=== PATIENT | female | born 1930 | race Caucasian/White ===

== ENCOUNTER 2016-05-03 03:14 | Inpatient (IN) | payer OTHER, MEDICARE ==
[~2016-05-03] VITALS: Ht 152.4 cm; Wt 62.6 kg
[~2016-05-03 03:14] MED LIST: ATORVASTATIN CA10 M1 PO; COLACE100 M1 PO; FER-IN-SOL15 MG/1 ML PO; LEVOTHYROXINE88 MCG PO; LISINOPRIL5 M1 PO; METRONIDAZOLE70 GM EXT
--- NOTE | 2016-05-03 12:31 | Operative Report ---
Operative/Inv Procedure Report Surgery Date: 05/03/16 Name of Procedure: Right total knee arthroplasty Pre-Operative Diagnosis: Primary right knee osteoarthritis Post-Operative Diagnosis: Same Estimated Blood Loss: scant Surgeon/Manager Of Drilling: LILI SANDOVAL,Jean-Claude CROWE Anesthesia: block Implants: [place] triathlon total knee arthroplasty system--size 3 cruciate retaining femur, size 3 tibia, 9 mm cruciate retaining polyethylene, 29 patella Drains: None Specimens: Femoral, tibial, patellar bone Microbiology: Urine Tourniquet: 52 minutes Complications: None Condition: Stable Operative Indication: Patient is an 85-year-old woman with a long history of gradually worsening right knee symptoms. She has been diagnosed with osteoarthritis. At one point since her x-rays were not as impressive, patient did have MRI evaluation which revealed more severe degenerative changes in tricompartmental distribution. Severe changes of articular cartilage loss on the lateral compartment, moderate changes in medial compartment and patellofemoral compartment.Patient was treated with medications activity modification and injections. Unfortunately she had persistent and ongoing symptoms including mechanical symptoms and worsening pain that interfere with normal activities of daily living. She wished to proceed with total knee arthroplasty after risks benefits and expectations were discussed which included but were not limited to persistent knee pain, need for subsequent surgery, infection, DVT, anesthesia risks, injury to blood vessel or nerve. Operative/Procedure Note Note: Patient was brought to the operating room and transferred to the operating table. Once under appropriate anesthesia the right lower extremity was prepped and draped in standard fashion. Preoperative IV antibiotics were given prophylactically. The right lower extremity was elevated exsanguinated and tourniquet was inflated to 300 mm of pressure. Standard anterior incision was made for anticipated medial parapatellar approach to the knee. Incision was taken down sharply to the underlying retinaculum. A medial retinacular approach with minimal extension into the quadriceps tendon was used to enter the knee. There were diffuse degenerative changes of both medial lateral compartments. Degenerative osteophytes were excised. Remnants of the medial lateral meniscal tissues were excised. ACL was excised. Knee was flexed and the drill was used to enter the intramedullary canal the distal femur for the intramedullary guide. The settings were 5 valgus and 10 mm in thickness. The cut was made while protecting the soft tissues. The femur was incised was size 3. The size 3 cutting jig was used to finish the preparation of the femur. I then used the external tibial alignment guide to determine the tibial cut. The cutting guide was pinned in position for a neutral cut from medial to lateral and reproducing patient's posterior slow-paced on preoperative templating and intraoperative findings. The cut was made while protecting the medial lateral and posterior structures. The PCL was recessed. Remnants of the posterior horns of the medial lateral meniscal tissues were excised. The tibia was then sized to a size 3. A trial reduction with a size 3 tibia size 3 to femur and a 9 mm insert was used the knee was taken out to full extension there was no evidence of instability. Extension mid flexion and full flexion to gravity. I then prepared the patella. Patella was measured, appropriate thickness was removed and restored with a 29 mm 3 lug hole patella. The 3 lug holes were drilled in standard fashion as lateral as possible. The knee was taken through range of motion. Slight tendency for the patella to sublux and therefore a lateral release was performed and extra articular fashion. I was satisfied with the patellofemoral articulation and tracking after this was completed. All components were then removed and final preparation of the tibia was completed with the tibial punch at the appropriate rotation which was marked during my trialing. 2 lug holes were drilled in the femur. Copious irrigation of the knee followed as the cement was being mixed on the back table. Once the cement was ready was applied to the dry clean bony surfaces of the tibia. The size 3 tibial component was impacted in place with the rotation that was previously determined. Excess cement was removed with curettes. Cement was applied to the dry clean bony surfaces of distal femur and the size 3 femur was impacted in place and excess cement was removed with curettes. The knee was taken out into full extension with a 9 mm polyethylene component to pressurize the interfaces. Cement was applied to the dry clean bony surfaces of the patella. The size 29 patella was impacted in place and excess cement was removed with a knife. While the cement was hardening I did appear articular pericapsular injection of ropivacaine with epinephrine and Toradol for postoperative pain and inflammation management. Once cement was hardening took the knee through range of motion. Small pieces of excess cement were removed with osteotome. I was satisfied with the stability with a 9 mm insert. I removed the trial polyethylene. Copious irrigation the tibial tray followed. I made sure there was no remnants of bone, cement or soft tissue within the tibial tray and then I impacted the definitive size 9 mm cruciate retaining polyethylene in place. The locking mechanism was confirmed. The knee was taken through range of motion. Full extension. No evidence of instability in full extension mid flexion and she had full flexion to gravity with excellent tracking of the patellofemoral articulation. Copious irrigation followed and followed every level of closure. The tourniquet was deflated at 52 minutes. Hemostasis was obtained. There was no need for a drain. I then closed the retinacular incision with interrupted #1 Vicryl sutures followed by the quadricep extension. Subcutaneous tissues closed with 2 -0 Vicryl in 2 layers. Skin was closed with a running 3-0 Vicryl suture with the knee in flexion. Appropriate dressings were applied and patient was awakened and taken the recovery room in good condition. No intraoperative complications. Blood loss was minimal due to the tourniquet. Discharge Disposition: PACU
--- NOTE | 2016-05-03 14:36 | PN- Orthopedic ---
Subjective Subjective: Post op check Complaining of surgical pain - has had an On Q placed but it doesn't seem to be working No nausea, tolerating liquids Objective Vital Signs and I&Os VSS, afebrile good urine output in [place] Physical Exam: General: alert and oriented times three Chest: clear anteriorly bilaterally, RRR Abd: soft, good bs Ext: warm, no edema, positive sensate, no calf tenderness, good strength RLE Wound: dressed, dry, ice pack in place On Q in place Assessment/Plan Assessment/Plan 85 yo female s/p R TKR pain management coumadin for dvt ppx - 5mg ordered PT - wbat fu labs in am anesthesia coming to evaluate On Q - of not working will dc and adjust meds accordingly Core Measures/Miscellaneous [place] Catheter Date In: 05/03/16 Still Needed? Yes (24 hrs post op) Venous Thromboembolism VTE Risk Factors: Age > 40, Surgery VTE Contraindications: No Contraindications VTE Prophylaxis Ordered Inpt: Mech & Pharm VTE Diagnosis: No Beta Vivienne Is Beta Vivienne a Home Med? No Antibiotics Is Patient on Antibiotics? Yes If Yes: prophylaxis (24 hrs post op)
[2016-05-03 17:04] VITALS: BP 124/80
[2016-05-03 19:42] VITALS: BP 150/70
[2016-05-03 21:00] VITALS: BP 140/68
[2016-05-03 23:03] VITALS: BP 120/70
[2016-05-04 07:28] VITALS: BP 118/10
--- NOTE | 2016-05-04 07:43 | PN- Orthopedic ---
See Addendum Subjective Subjective: NAEO. Patient without new c/o. She had some bleeding from On-Q pump site yesterday evening which has since stopped. Pain controlled at this time. She had some n/v last night but has tolerated milk this morning. Has not been OOB with PT. Voiding. Denies CP/SOB. Objective Vital Signs and I&Os Vital Signs Date Time Temp Pulse Resp B/P Pulse O2 O2 Flow FiO2 Ox Delivery Rate 05/04 0728 98.0 71 20 118/10 95 Room Air 05/03 2303 98.0 72 20 120/70 94 Room Air 05/03 2219 70 142/68 05/03 2100 98.0 70 18 140/68 94 Room Air 05/03 1942 97.6 70 20 150/70 95 Room Air 05/03 1704 98.0 66 18 124/80 94 Room Air Intake & Output 05/04 0800 05/04 0000 05/03 1600 05/03 0800 05/03 0000 05/02 1600 Intake Total 960 1050 Output Total 450 675 Balance 510 375 Intake, IV 600 450 Intake, Oral 360 600 Number Bowel Movements Output, Emesis Output, Urine 450 675 Patient 138 lb Weight Physical Exam: General: NAD, comfortable, A&Ox3 Chest: CTAB. RRR. Abdomen: soft, nontender, nondistended. Ext: Right knee dressing c/d/i. RLE compartments soft. No calve swelling/TTP, neurovascularly intact bilateral lower extremities. Current Medications: Current Medications Sig/Delicia Start time Last Medication Dose Route Stop Time Status Admin Al Hydroxide/Mg 30 ML Q6P PRN 05/03 1645 AC Hydroxide PO Atorvastatin Calcium 10 MG 1700 05/03 1730 AC 05/03 PO 2055 Dextrose/Lactated 1,000 ML Q13H 05/03 1645 AC 05/03 Ringer's IV 1733 Docusate Sodium 100 MG DAILY 05/04 1000 AC PO Fentanyl Citrate 100 MCG .STK-MED ONE 05/03 0942 DC IM 05/03 0943 Hydromorphone HCl 2 MG .STK-MED ONE 05/03 1245 DC IM 05/03 1246 Levothyroxine Sodium 0.088 MG DAILY AC 05/04 0700 AC 05/04 PO 0554 Lisinopril 5 MG 2200 05/03 2200 AC 05/03 PO 2219 Midazolam HCl 2 MG .STK-MED ONE 05/03 0942 DC IM 05/03 0943 Morphine Sulfate 2 MG Q3P PRN 05/03 1645 AC 05/04 IV 0609 Morphine Sulfate 4 MG Q3P PRN 05/03 1645 AC 05/03 IV 2055 Ondansetron HCl 4 MG Q6P PRN 05/03 1645 AC 05/03 IV 1727 Oxycodone/ 1 TAB Q4P PRN 05/03 1645 AC Acetaminophen PO Oxycodone/ 2 TAB Q4P PRN 05/03 1645 AC Acetaminophen PO Polyethylene Glycol 17 GM DAILY NEEDED PRN 05/03 1645 AC PO Ropivacaine 500 ML ONCE ONE 05/03 1245 AC ON-Q Ball 1 BAG INJ 05/05 1444 Tranexamic Acid 2,000 MG .STK-MED ONE 05/03 0943 DC IV 05/03 0944 Vancomycin HCl 1,000 MG ONCE ONE 05/03 2200 DC 05/03 Dextrose/Water 250 ML IV 05/03 2259 2309 Vancomycin HCl 1,000 MG ONCE 05/03 0000 DC Dextrose/Water 250 ML IV 05/03 2359 Warfarin Sodium 5 MG COUMADIN 1700 ONE 05/03 1700 DC 05/03 PO 05/03 1701 2055 Assessment/Plan Assessment/Plan 85yo F POD#1 s/p R TKA. AVSS, progressing as expected. - Pain control - Bowel regimen - PRN antiemetics - OOB and ambulate with PT - f/u a.m. labs - dose coumadin for INR 2-3 - continue On-Q pump - I/O's - DC IVF - abx complete - will d/w attending Core Measures/Miscellaneous [place] Catheter Date In: 05/03/16 Venous Thromboembolism VTE Risk Factors: Age > 40, Surgery VTE Contraindications: No Contraindications VTE Prophylaxis Ordered Inpt: Mech & Pharm VTE Diagnosis: No Beta Vivienne Is Beta Vivienne a Home Med? No Antibiotics Is Patient on Antibiotics? No
[2016-05-04 08:45] LABS: ABSOLUTE BASOPHIL COUNT 0 /CUMM (0.0-0.2); ABSOLUTE EOSINOPHIL COUNT 0 /CUMM (0.0-0.7); ABSOLUTE GRANULOCYTE CT 10.3 /CUMM (1.4-6.5); ABSOLUTE LYMPH COUNT 0.7 /CUMM (1.2-3.4); ABSOLUTE MONOCYTE COUNT 0.8 /CUMM (0.10-0.60); BASOPHIL % 0 % (0.0-2.0); EOSINOPHIL % 0.2 % (0-5); HEMATOCRIT 33.9 % (37-47); MEAN CORPUSCULAR HGB 34.5 PG (27.0-31.0); MEAN CORPUSCULAR HGB CONC 34.3 G/DL (33.0-37.0); MEAN CORPUSCULAR VOLUME 100.5 FL (81.0-99.0); MEAN PLATELET VOLUME 8.8 FL (7.4-10.4); PLATELET COUNT 172 /CUMM (130-400); RBC DISTRIBUTION WIDTH 12.4 % (11.5-14.5); RED BLOOD CELL CT 3.37 /CUMM (4.20-5.40); WHITE BLOOD CELL COUNT 11.8 /CUMM (4.8-10.8)
[2016-05-04 08:55] LABS: PT 11.9 SEC (9.4-12.5)
--- NOTE | 2016-05-04 09:11 | Patient Discharge Instructions ---
Discharge Instructions General Discharge Information You were seen/treated for: Right knee primary OA/DJD You had these procedures: 05/03/16 Right total knee arthroplasty Watch for these problems: Redness, swelling, fever, signs of infection. Uncontrolled pain, Excessive bleeding. Decreased range of motion or unable to bear weight. Chest pain, shortness of breath. Call Surgeon to remove: Stitches Do not soak the wound: Yes No bath, but you may shower: Yes Other wound care: Daily dressing changes Diet Continue normal diet: Yes Activity Activity Self Limited: Yes Activity Limited to: Weight bear as tolerated Additional ACTIVITY Info: Daily physical therapy Acute Coronary Syndrome Inclusion Criteria At DC or during hospital stay patient has or had the following: ACS DIAGNOSIS No Discharge Core Measures Meds if any: Prescribed or Continued at Discharge Meds if any: NOT Prescribed or Continued at Discharge Congestive Heart Failure Inclusion Criteria At DC or during hospital stay patient has or had the following: CHF DIAGNOSIS No Discharge Core Measures Meds if any: Prescribed or Continued at Discharge Meds if any: NOT Prescribed or Continued at Discharge Cerebrovascular accident Inclusion Criteria At DC or during hospital stay patient has or had the following: CVA/TIA Diagnosis No Discharge Core Measures Meds if any: Prescribed or Continued at Discharge Meds if any: NOT Prescribed or Continued at Discharge Venous thromboembolism Inclusion Criteria VTE Diagnosis No VTE Type NONE VTE Confirmed by (Test) NONE Discharge Core Measures - Per Current guidelines, there needs to be overlap - treatment for the first 5 days of Warfarin therapy. - If discharged on Warfarin prior to 5 days of - overlap therapy, the patient will need to be - assessed for post discharge needs including - *Post discharge parental anticoagulation - *Warfarin and/or parental anticoagulation education - *Follow up date to check INR post discharge At least 5 days overlap therapy as Inpatient No Meds if any: Prescribed or Continued at Discharge Note: Overlap Therapy is Warfarin and Anticoagulant Meds if any: NOT Prescribed or Continued at Discharge
[2016-05-04] MEDS ORDERED: COLACE100 M1 PO (09:13)
[2016-05-04] MEDS ORDERED: COUMADIN5 M2 PO (09:13)
[2016-05-04] MEDS ORDERED: PERCOCET 5-3251 EACH PO (09:13)
--- NOTE | 2016-05-04 09:18 | Discharge Summary ---
Visit Information Visit Dates Admission Date: 05/03/16 Discharge Date: 05/06/2016 Hospital Course Course Attending Physician: AMRITA PEARSON MD Primary Care Physician: Bret HALE MD Hospital Course: Patient admitted to floor following procedure below. Patient ambulated with PT upon arrival to the floor. Patient continued to progress well. Upon discharge patient is afebrile, tolerating diet, pain controlled, ambulating well with rolling walker and PT. Complications: None Allergies: Coded Allergies: Penicillins (Severe, SWELLING 04/22/16) Significant Procedures: 05/03/16 right total knee arthroplasty Disposition Summary Disposition Principal Diagnosis: Right knee primary OA/DJD Additional Diagnosis: None Discharge Disposition: SNF Discharge Instructions General Discharge Information Code Status: Full Code Patient's Diet: Resume normal diet Patient's Activity: Weightbearing as tolerated Daily physical therapy Follow-Up Instructions/Appts: Call office to schedule/confirm appointment Medications at Discharge Discharge Medications: Continue taking these medications: Ferrous Sulfate (Jean-in-Lauren) 15 MG IRON (75 MG)/ML DROPS 1 Tablet ORAL DAILY Comments: Last Taken:NOT TAKE IN HOSPITAL Time: Docusate Sodium (Colace) 100 MG CAPSULE 1 Tablet ORAL DAILY Comments: Last Taken:05/06/16 Time:1050 Levothyroxine Sodium (Levothyroxine Sodium) 88 MCG TABLET 1 Tablet ORAL DAILY Comments: Last Taken:05/06/16 Time:0610 Lisinopril (Lisinopril) 5 MG TABLET 1 Tablet ORAL NIGHTLY Comments: Last Taken:05/05/16 Time:2142 Atorvastatin Calcium (Atorvastatin Calcium) 10 MG TABLET 1 Tablet ORAL NIGHTLY Comments: Last Taken:05/05/16 Time:1612 Metronidazole (Metronidazole) 0.75 % GEL.W.APPL 1 ON SKIN DAILY Comments: Last Taken:NOT TAKEN IN HOSPITAL Time: Start taking the following new medications: Warfarin Sodium (Coumadin) 5 MG TABLET 1 Tablet ORAL DAILY Qty = 14 No Refills Instructions: DOSE FOR INR 2-3 Comments: Last Taken:05/05/16 Time:1612 Docusate Sodium (Colace) 100 MG CAPSULE 1 Capsule ORAL TWICE DAILY as needed for CONSTIPATION Qty = 30 Refills = 1 Comments: Last Taken:05/06/16 Time:1050 Tramadol HCl (Ultram) 50 MG TABLET 1 Tablet ORAL EVERY SIX HOURS NEEDED as needed for PAIN Qty = 30 No Refills Comments: Last Taken:05/06/16 Time:0350 Copies To: Bret HALE MD
[2016-05-04 09:26] LABS: GRANULOCYTE % 87.4 % (42.2-75.2)
[2016-05-04 09:36] VITALS: BP 122/80
[2016-05-04 13:59] VITALS: BP 120/60
[2016-05-04 22:38] VITALS: BP 114/50
[2016-05-05 06:30] VITALS: BP 148/70
[2016-05-05 08:01] LABS: ABSOLUTE BASOPHIL COUNT 0 /CUMM (0.0-0.2); ABSOLUTE EOSINOPHIL COUNT 0.1 /CUMM (0.0-0.7); ABSOLUTE GRANULOCYTE CT 6.9 /CUMM (1.4-6.5); ABSOLUTE LYMPH COUNT 0.9 /CUMM (1.2-3.4); ABSOLUTE MONOCYTE COUNT 0.8 /CUMM (0.10-0.60); BASOPHIL % 0.3 % (0.0-2.0); EOSINOPHIL % 1.5 % (0-5); HEMATOCRIT 34.1 % (37-47); MEAN CORPUSCULAR HGB 34.8 PG (27.0-31.0); MEAN CORPUSCULAR HGB CONC 34.5 G/DL (33.0-37.0); MEAN CORPUSCULAR VOLUME 100.9 FL (81.0-99.0); MEAN PLATELET VOLUME 8.9 FL (7.4-10.4); PLATELET COUNT 162 /CUMM (130-400); RBC DISTRIBUTION WIDTH 12.6 % (11.5-14.5); RED BLOOD CELL CT 3.38 /CUMM (4.20-5.40); WHITE BLOOD CELL COUNT 8.8 /CUMM (4.8-10.8)
--- NOTE | 2016-05-05 08:06 | PN- Orthopedic ---
See Addendum Subjective Subjective: Patient reported no acute overnight events, but states that her pain is increasing this a.m. She mentioned that she was concerned she was taking pain medication that may be too strong for her, so she had requested Vicodin yesterday. She now states that she feels the Vicodin might not be effective enough and is interested in receiving a more effective pain medication. Denies chest pain, shortness of breath, and difficulty breathing. She denies nausea and vomiting. He has been voiding spontaneously. He has been ambulating. She is anticipating discharge to short-term rehabilitation in 1 day. Objective Vital Signs and I&Os Vital Signs Date Time Temp Pulse Resp B/P Pulse O2 O2 Flow FiO2 Ox Delivery Rate 05/05 0630 99.3 83 18 148/70 92 Room Air 05/04 2238 99.2 68 18 114/50 97 05/04 2108 70 120/60 05/04 1519 Room Air 05/04 1359 98.5 70 18 120/60 92 Room Air 05/04 0936 98.3 70 20 122/80 93 Room Air Intake & Output 05/05 0800 05/05 0000 05/04 1600 05/04 0800 05/04 0000 05/03 1600 Intake Total 240 360 582 250 3838 Output Total 650 200 450 675 Balance -410 360 530 510 375 Intake, IV 30 600 450 Intake, Oral 240 360 700 360 600 Number 0 Bowel Movements Output, Emesis Output, Urine 650 200 450 675 Patient 138 lb Weight Physical Exam: General: Alert and oriented 3, no acute distress Cardiac: Regular rhythm and rate, S1-S2 Pulmonary: Bilateral lung sounds clear to auscultation Abdomen: Soft and nontender, nondistended Extremities: Moves all extremities. Distal sensations grossly intact. Motor strength 5 out of 5 in plantar and dorsiflexion. Skin is warm and well perfused. Bilateral DP pulses palpable. Bilateral calves soft and nontender. Surgical site: Right knee. Dressing saturated. Dressing was taken down, Xeroform removed, there is an area of bleeding noted at the distal aspect of the incision only. Proximal to that area the Steri-Strips are clean dry and intact. There is no surrounding redness, warmth, or erythema. There is no purulence noted. A clean dressing consisting of Steri-Strips to the distal aspect of the incision, Xeroform, fluffs, 4 x 4, and an Elian bandage was reapplied. Assessment/Plan Assessment/Plan Manuela 85-year-old female, postoperative day 2 status post right total knee replacement. -Changed from Vicodin to Percocet to be given every 4-6 hours when necessary pain -Follow-up a.m. labs, continue to dose Coumadin daily, target INR 2-3 -Continue diet as tolerated, GI prophylaxis to include Colace and senna -Continue out of bed, weightbearing as tolerated, work with PT today -Reinforce dressing as needed -Anticipate discharge to short-term rehabilitation tomorrow -Will discuss with Ady Grijalva MD Core Measures/Miscellaneous [place] Catheter Date In: 05/03/16 Venous Thromboembolism VTE Risk Factors: Age > 40, Surgery VTE Contraindications: No Contraindications VTE Prophylaxis Ordered Inpt: Mech & Pharm VTE Diagnosis: No Beta Vivienne Is Beta Vivienne a Home Med? No Antibiotics Is Patient on Antibiotics? No
[2016-05-05 08:21] LABS: PT 13.8 SEC (9.4-12.5)
--- NOTE | 2016-05-05 11:03 | RADIOLOGY REPORT ---
EXAMINATION: XR KNEE, RIGHT CLINICAL INFORMATION: Status post right total knee arthroplasty. COMPARISON: MRI scan of the right knee dated 07/22/2015. TECHNIQUE: Two views of the right knee. FINDINGS: The patient is status post total right knee arthroplasty with the prosthetic components well aligned and anatomic in position. No hardware failure or torres martinez bone fracture is seen. There is a small suprapatellar knee joint effusion. Prepatellar soft tissue swelling is seen along with subcutaneous emphysema, consistent with postoperative state. Moderate arteriovascular calcifications are noted. Osteopenia is seen. IMPRESSION: 1. Normal alignment and appearance of the total right knee arthroplasty. 2. Soft tissue changes and knee joint effusion, consistent with recent postoperative state.
[2016-05-05 13:21] VITALS: BP 130/60
[2016-05-06 06:30] VITALS: BP 114/70
[2016-05-06 08:17] LABS: PT 18.6 SEC (9.4-12.5)
[2016-05-06] MEDS ORDERED: ULTRAM50 M1 PO (12:14)
[2016-05-06 14:01] VITALS: BP 114/70
[2016-05-06 14:07] VITALS: BP 114/70
== END 2016-05-06 15:15 | DRG 470 ==
LOC: ENRESERVTM → ENRESERVDT → ENPENDDIS 03:14 → 2NA 03:14 → SDA 03:14 → 2NA 16:44
PROVIDERS: Nurse Practitioner; Physician Assistant; Physician Assistant Surgical; ADMIT Orthopaedic Surgery
PROC: 0SRC0J9 Replacement of Right Knee Joint with Synthetic Substitute, Cemented, Open Approach (ICD-10-PCS; principal; 2016-05-03)
DX: M17.11 Unilateral primary osteoarthritis, right knee (principal); I10 Essential (primary) hypertension; E78.5 Hyperlipidemia, unspecified; E03.9 Hypothyroidism, unspecified
CPT/HCPCS: 2NASP; 36415; 73560-RT; 82436; 87086; 88305; 97110-GO; 97116-GO; 97161-GP; 97530-GO; C1713; J0131; J0171; J2405; J2795; J3370; J7060